=== PATIENT | female | born 1960 | race Caucasian/White ===

== ENCOUNTER → 2017-06-08 | Outpatient (CLI) | payer OTHER ==
[~2017-06-08] MED LIST: ACETAMINOPHEN PO; ACETAMINOPHEN325 MG DOB; ACETIC ACID-HC10 ML AU; ALLEGRA PO; ALLERGY RELIEF10 M6 DOB; ANTIDIARRHEAL2 MG GT; ANUCORT-HC25 MG/SUPP PR; ARTIFICIAL TEAR15 M3 OP; ARTIFICIAL TEAR15 M3 OU; ARTIFICIAL TEAR15 M5 OP; ARTIFICIAL TEAR15 M9 OU; ASACOL400 MG; ASPER-FLEX85 GM; ASPER-FLEX85 GM TOP; ASPER-FLEX85 GM TP; ASPERCREAM TOP; ASPERCREME HE70.8 GM TP; AURALGAN EAR DR14 ML AU; AURALGAN EAR DR14 ML OT; AURALGAN OTIC S10 M1 AD; B6100 MG GT; B6100 MG PO; BACID GT; BACID PEG; BACTRIM DS TABL1 TA2 GT; BISACODYL10 MG/SUPP PR; BROMFED PO; CALCIUM 250+D T1 TAB PO; CALCIUM CA500 MG/5 M PO; CALCIUM CIT PO; CALCIUM CITRATE + D PO; CALCIUM1 TAB.CHEW PEG; CALMOSEPTINE O3.5 GM TP; CANASA1000 MG/S1 PR; CARAFATE1 G; CEFEPIME IV; CERTAGEN PO; CITRACAL + D CA1 TA1 GT; COLACE; COLACE PO; CORRECTOL5 MG PO; DEPAKOTE PO; DEPAKOTE SPRIN125 MG; DIASTAT ACUDIAL1 KIT; DIASTAT ACUDIAL1 KIT PR; DIASTAT ACUDIAL1 KIT RC; DIASTAT10 MG PR; DIFF-STAT POWD1 EACH GT; DIFLUCAN PEG; DIFLUCAN PO; EES/SULFISOXAZ100 ML PEG; FERROUS SULFATE PO; FLEET ENEMA133 M1 PR; FLONASE 0.05% N16 G1; GAS RELIEF40 MG/0.1 DOB; GRANULEX SPR113.4 GM TOP; HEPARIN FLUSH; HEPARIN INJ; ISONIAZID300 MG GT; ISONIAZID300 MG PO; K-SOL20 MEQ/15 GT; KCL PO; KEPPRA PO; KEPPRA100 MG/ML DOB; KEPPRA100 MG/ML GT; KEPPRA100 MG/ML JT; KEPPRA100 MG/ML PEG; KEPPRA100 MG/ML PO; KEPPRA750 MG GT; KEPPRA750 MG PEG; KEPPRA750 MG PO; KLOR-CON GT; LACTULOSE10 G/15 ML PO; LAMICTAL GT; LAMICTAL ODT100 MG DOB; LAMICTAL PO; LAMICTAL100 MG GT; LAMICTAL100 MG PO; LAMICTAL25 MG GT; LAMICTAL25 MG PEG; LAMICTAL25 MG PO; LAMOTRIGINE200 MG GT; LAMOTRIGINE200 MG PO; LEVAQUIN IV; LEVAQUIN PO; LOPRESSOR PO; LORTAB ELIXER; LYRICA DOB; LYRICA GT; LYRICA PO; LYRICA100 MG; LYRICA100 MG GT; LYRICA200 MG PO; LYRICA25 MG; MAALOX SUSPENSI30 ML PO; MACRODANTIN PO; MAGIC BUTT C TP; MAGIC BUTT TOP; METOCLOPRAMID5 MG/M2 GT; METOPROLOL GT; METOPROLOL SUCC25 MG DOB; METOPROLOL SUCC25 MG PO; METOPROLOL TAR25 MG GT; METOPROLOL TART25 MG GT; METOPROLOL TART25 MG PO; MEVACOR GT; MIRALAX17 GM DOB; MIRALAX17 GM GT; MIRALAX255 GM GT; MIRALAX255 GM PO; MONTELUKAST SOD10 MG DOB; MUCINEX DM1 TAB.SR .; MUCINEX DM1 TAB.SR . PO; MUCINEX PO; MYLICON40 MG/0.1 GT; MYLICON40 MG/0.6; NASACORT AQ16.5 GM; NASAL SPRAY30 M1; NASAREL29 MCG; NASOCORT AQ IH; NEXIUM GT; NEXIUM PEG; NEXIUM40 MG/PACK GT; NEXIUM40 MG/PACK PO; OCEAN SPRAY; OCEAN45 ML; OSCAL; PAROEX473 ML PO; PATADAY OP; PATADAY2.5 ML OP; PATADAY2.5 ML OU; PATANOL5 ML OP; PERIDEX480 ML; PERIDEX480 ML GT; PERIDEX480 ML PO; PHAZYME250 MG PEG; PHENERGAN SUPP25 M1 PR; PHENERGAN25 M1 PR; PREDNISONE10 MG GT; PREVACID; PREVACID GT; PRILOSEC PO; PRILOSEC20 MG GT; PROMETHAZI RC; REGLAN PO; RISAMINE OINTM113 GM GT; RISAMINE OINTM113 GM TOP; RISAMINE OINTM113 GM TP; ROZEREM8 MG PO; SABRIL500 M1 GT; SABRIL500 MG DOB; SABRIL500 MG GT; SALINE NOSE SPR45 M1 IH; SENNA CONCENTR8.6 MG DOB; SENNA S TABLET1 TAB PO; SENNA176 MG/5 M GT; SENNA8.8 MG/5 M GT; SENNA8.8 MG/51 GT; SINGULAIR; SINGULAIR GT; SINGULAIR PO; SOD CHLORIDE 0.9% INJ; SODIUM CHLORIDE; SUDAFED PO; SUP RC; TAMIFLU6 MG/1 ML PO; THERA PLUS GT; THERAGRAN; THERAPEUTIC PO; TIMOPTIC2.5 ML; TRAMADOL HCL50 M1 PEG; TRIPLE ANTIBIOT28 GM TOP; TYL325 GT; TYLENOL/CODEINE1 TA1 PO; TYLENOL325 M1 GT; TYLENOL325 M1 PO; VANCOMYCIN250 MG/5 M GT; VITAMIN D; VITAMIN D 4001 UDTAB GT; VITAMIN D 4001 UDTAB PO; VITAMIN D-32000 UNIT GT; VITAMIN D1000 UNI2 PO; VITAMIN D1000 UNIT DOB; VITAMIN D400 UNI2 GT; ZOSYN IV; ZYRTEC PO; ZYRTEC10 M1 GT; ZYRTEC10 M2 GT; ZYVOX PEG; [UNRECOGNIZED DRUG - OTHER] GT; [UNRECOGNIZED DRUG - OTHER] OP; [UNRECOGNIZED DRUG - OTHER] PO; [UNRECOGNIZED DRUG - OTHER] TOP; mucinex PO
--- NOTE | ~2017-06-08 | US77 ---
[facility] A Service of [facility] & [facility] / [facility] RADIOLOGY TEXT RESULTS PATIENT: SAMANTHA PARIS LOCATION: [facility] : 62 UNIT #: [id number] AGE: [address]: Heath Hermosillo MD SEX: F ORDER DR: [id number] [facility] [address] [place], [place] [address] [id number] O MR#: [id number] Acc #: [id number] NAME: SAMANTHA PARIS : 1960 SEX: F STUDY DATE/TIME: 06/08/2017 14:32 UNIT: [facility] ROOM: STUDY DESCRIPTION: US Kidney Bilateral Complete Attending Physician: Heath Hermosillo Sr., M.D. Referring Physician: Heath Hermosillo Sr., M.D. Ordering Physician: Heath Hermosillo Sr., M.D. Primary Care Physician: Heath Hermosillo Sr., M.D. MEDICAL IMAGING REPORT This report is preliminary unless electronic signature is present EXAM Renal ultrasound 06/08/2017 HISTORY Urinary tract infection for 2 weeks. Benign essential hypertension and hematuria, 05/22/2017. FINDINGS The right kidney measures 9.7 cm, while the left kidney measures 9 cm in longitudinal dimensions. There is no evidence of hydronephrosis or nephrolithiasis. No cystic or solid mass lesions were seen on either kidney. There is normal renal cortical echogenicity. The bladder was normal in appearance. IMPRESSION 1. Negative renal ultrasound. 2. Images of the bladder are normal. Dictated by... Pablo Esquivel M.D. THIS IS AN ELECTRONICALLY VERIFIED REPORT Pablo Esquivel M.D. at 06/09/2017 7:28 AM KRT/pcl TD: 06/08/2017 21:12 JOB #: [id number] MEDICAL IMAGING REPORT Page 1 of 1 COPY
== END | disposition home or self-care (01) ==
LOC: CGUS 13:30
DX: R31.9 Hematuria, unspecified (principal)
CPT/HCPCS: 76770

== ENCOUNTER → 2017-06-14 | Outpatient (CLI) | payer OTHER | END | disposition home or self-care (01) | LOC: CSSDAY 13:06 | DX: M81.8 Other osteoporosis without current pathological fracture (principal) | CPT/HCPCS: 96372; J0897 ==